=== PATIENT | male | born 1985 | race Two or more races ===

== ENCOUNTER 2024-10-29 12:55 | Emergency (ER) | payer OTHER ==
[~2024-10-29] VITALS: Ht 172.7 cm; Wt 77.1 kg
[2024-10-29] MEDS ORDERED: HYDROCODONE/APAP 5-325MG TABLET ONE (13:19)
[2024-10-29] MEDS ORDERED: KETOROLAC TROMETHAMINE 30 MG INJ ONE (13:19)
[2024-10-29] MEDS: HYDROCODONE/APAP 5-325MG TABLET PO ONE (13:27)
[2024-10-29] MEDS: KETOROLAC TROMETHAMINE 30 MG INJ IM ONE (13:27)
[2024-10-29] MEDS ORDERED: IBUP-1955 PO (13:43)
[2024-10-29] MEDS ORDERED: DIAZ5TAB4 PO (13:43)
[2024-10-29] MEDS ORDERED: HYDR-3972 PO (13:43)
[2024-10-29 15:32] VITALS: BP 111/69; TEMP 98.1; O2SAT 99
== END 2024-10-29 15:32 | disposition home or self-care (01) ==
LOC: ER 12:55
DX: S76.812A Strain of other specified muscles, fascia and tendons at thigh level, left thigh, initial encounter (principal); X50.0XXA Overexertion from strenuous movement or load, initial encounter; Y93.89 Activity, other specified; Y92.89 Other specified places as the place of occurrence of the external cause; Y99.8 Other external cause status
CPT/HCPCS: 99283; 73551; 93005; 96372; J1885; A4606; A4663